=== PATIENT | female | born 1975 | race Caucasian/White ===

== ENCOUNTER → 2019-11-23 17:58 | Outpatient (CLI) | payer MEDICAID, SELFPAY ==
[2019-11-23 19:30] LABS: Basophils # 0.1 K/mm3 (0-0.2); Basophils % 0.5 % (0.1-2.0); Eosinophils # 0.1 K/mm3 (0.0-0.4); Eosinophils % 1.2 % (0.1-12.0); Hematocrit 38.8 % (37.0-47.0); Hemoglobin 13.1 g/dL (12.2-16.2); Lymphocytes # 4.1 K/mm3 (0.7-4.5); Lymphocytes % 40.9 % (10-50); Mean Corpuscular HGB Conc 33.8 g/dL (31.8-35.4); Mean Corpuscular Volume 85.8 fl (81-99); Mean Platelet Volume 8.7 fl (7.4-10.4); Monocytes # 0.6 K/mm3 (0.1-1.0); Monocytes % 5.6 % (1.7-9.3); Neutrophils # 5.2 K/mm3 (1.8-7.8); Neutrophils % 51.7 % (37.0-80.0); Platelet Count 283 K/mm3 (142-424); Red Blood Count 4.52 M/mm3 (4.20-5.40); Red Cell Distribution Width 14.2 % (11.5-17.5)
[2019-11-23 20:20] LABS: Chloride 104 mmol/L (98-107); Sodium 140 mmol/L (136-145)
[2019-11-23 20:21] LABS: Potassium 4.1 mmoL/L (3.5-5.1)
[2019-11-23 20:23] LABS: Alanine Aminotransferase 16 U/L (12-78); Albumin Level 4.5 g/dl (3.5-5.0); Albumin/Globulin Ratio 1.7 (1.1-1.8); Alkaline Phosphatase 62 U/L (38-126); Anion Gap 13.1 mEq/L (5-15); Aspartate Amino Transferase 34 U/L (14-36); Bilirubin,Total 0.3 mg/dl (0.2-1.3); Blood Urea Nitrogen 8 mg/dl (7-17); Carbon Dioxide 27 mmol/L (22.0-30.0); Cholesterol 207 mg/dl (140-200); Estimated Glomerular Filt Rate 135 ml/min (>60); GFR (African American) 164 ML/MIN (>60); Globulin 2.7 g/dL (1.3-3.2); Total Protein,Serum 7.2 g/dl (6.3-8.2); Triglycerides 128 mg/dl (30-150); VLDL Cholesterol 26 mg/dL (0-40)
[2019-11-23 20:24] LABS: Calcium 11.1 mg/dl (8.4-10.2); Chol/HDL Ratio 4.2 (1-3.5); Glucose 99 mg/dl (74-100); HDL Cholesterol 49 mg/dl (40-60)
[2019-11-23 20:35] LABS: Direct LDL Cholesterol 133.06 mg/dL (100-129)
[2019-11-23 20:41] LABS: T4 (Thyroxine) 10.4 ug/dl (5.53-11.0)
[2019-11-23 20:44] LABS: 25-OH Vitamin D, Total 29.8 ng/mL (30-100)
[2019-11-23 20:54] LABS: Thyroid Stimulating Hormone 0.82 uIU/mL (0.465-4.68)
[2019-11-25 10:12] LABS: Hep A Ab, IgM Negative (Negative); Hepatitis B Core Antibody IgM Negative (Negative); Hepatitis B Surface Antigen Negative (Negative)
[2019-11-25 19:43] LABS: Hepatitis C Antibody <0.1 s/co ratio (0.0-0.9)
== END ==
PROVIDERS: Visit Provider Emergency Medicine
DX: F41.9 Anxiety disorder, unspecified (principal); R53.83 Other fatigue; G56.01 Carpal tunnel syndrome, right upper limb; M79.2 Neuralgia and neuritis, unspecified; E55.9 Vitamin D deficiency, unspecified; Z72.0 Tobacco use
CPT/HCPCS: 80053; 80061; 80074; 82306; 84436; 84443; 85025

== ENCOUNTER → 2020-02-17 08:55 | Outpatient (CLI) | payer MEDICAID, SELFPAY ==
--- NOTE | 2020-02-17 08:56 | MM_ITS ---
PROCEDURE: MM DIG SCREENING MAMM BI W/CAD Digital Breast Tomosynthesis Included CLINICAL INDICATION: screening xmg There is no personal or family history of breast cancer. COMPARISON: MG Screening-Bilateral Mammography from 03/25/2019 TECHNIQUE: Standard CC and MLO images and 3D Tomosynthesis was obtained. R2 CAD reviewed. FINDINGS: There is a markedly and diffusely dense heterogenic parenchymal pattern and the findings are bilateral and symmetrical. Tomograms are most helpful in this type of dense breast parenchyma. There are scattered benign-appearing microcalcifications in each breast. There is a mole marker left breast. There are no CAD markers. There is no suspicious lesion in either breast and no suspicious microcalcifications. IMPRESSION: Markedly dense parenchymal pattern with no suspicious lesions seen BI-RAD Category: 2 Benign Finding(s) FOLLOW-UP: 1YR 1 Year Follow-up (A letter has been sent to the patient regarding results of the study.) Dictated by: Dr. Duran Mendieta MD 03/30/2020 10:50 Dr. Duran Mendieta MD in [place] 03/30/2020 10:50
== END ==
PROVIDERS: PCP Emergency Medicine; Visit Provider Nurse Practitioner Obstetrics & Gynecology
DX: Z12.31 Encounter for screening mammogram for malignant neoplasm of breast (principal)
CPT/HCPCS: 77063; 77067

== ENCOUNTER → 2020-05-24 10:59 | Outpatient (CLI) | payer MEDICAID, SELFPAY | PROVIDERS: PCP Emergency Medicine; Visit Provider Emergency Medicine | DX: Z20.822 Contact with and (suspected) exposure to COVID-19 (principal) | CPT/HCPCS: U0003 ==

== ENCOUNTER → 2021-01-04 17:30 | Outpatient (CLI) | payer MEDICAID, SELFPAY | PROVIDERS: Visit Provider Nurse Practitioner Family | DX: N39.0 Urinary tract infection, site not specified (principal) | CPT/HCPCS: 87086; 87088; 87186 ==

== ENCOUNTER → 2021-03-17 11:21 | Outpatient (CLI) | payer MEDICAID, SELFPAY ==
[2021-03-17 11:40] LABS: Basophils # 0.1 K/mm3 (0-0.2); Basophils % 0.4 % (0.1-2.0); Hematocrit 40.6 % (37.0-47.0); Hemoglobin 13.5 g/dL (12.2-16.2); Lymphocytes # 1.6 K/mm3 (0.7-4.5); Lymphocytes % 12.2 % (10-50); Mean Corpuscular HGB Conc 33.3 g/dL (31.8-35.4); Mean Corpuscular Hemoglobin 30.6 pg (27.0-31.2); Mean Corpuscular Volume 91.8 fl (81-99); Mean Platelet Volume 8.9 fl (7.4-10.4); Monocytes # 0.6 K/mm3 (0.1-1.0); Monocytes % 4.3 % (1.7-9.3); Neutrophils # 10.8 K/mm3 (1.8-7.8); Neutrophils % 83.1 % (37.0-80.0); Platelet Count 407 K/mm3 (142-424); Red Blood Count 4.42 M/mm3 (4.20-5.40); Red Cell Distribution Width 14.4 % (11.5-17.5); White Blood Count 12.9 K/mm3 (4.8-10.8)
[2021-03-17 12:19] LABS: Erythrocyte Sedimentation Rate 24 mm/hr (0-20)
[2021-03-17 12:25] LABS: Chloride 103 mmol/L (98-107); Sodium 139 mmol/L (136-145)
[2021-03-17 12:26] LABS: Potassium 3.9 mmoL/L (3.5-5.1)
[2021-03-17 12:28] LABS: Alanine Aminotransferase 11 U/L (12-78); Alkaline Phosphatase 81 U/L (38-126); Anion Gap 13.9 mEq/L (5-15); Aspartate Amino Transferase 22 U/L (14-36); Blood Urea Nitrogen 10 mg/dl (7-17); Carbon Dioxide 26 mmol/L (22.0-30.0); Estimated Glomerular Filt Rate 109 ml/min (>60); GFR (African American) 132 ML/MIN (>60)
[2021-03-17 12:29] LABS: Albumin Level 4.6 g/dl (3.5-5.0); Albumin/Globulin Ratio 1.8 (1.1-1.8); Calcium 10.4 mg/dl (8.4-10.2); Globulin 2.5 g/dL (1.3-3.2); Glucose 139 mg/dl (74-100); Total Protein,Serum 7.1 g/dl (6.3-8.2)
[2021-03-17 13:09] LABS: Bilirubin,Total < 0.1 mg/dl (0.2-1.3)
[2021-03-18 09:12] LABS: RA Latex Turbid. <10.0 IU/mL (<14.0)
[2021-03-19 15:31] LABS: Anti-Centromere B Antibodies <0.2 AI (0.0-0.9); Anti-DNA (DS) Ab Qn 1 IU/mL (0-9); Anti-Jo-1 <0.2 AI (0.0-0.9); Anti-Smith Antibody <0.2 AI (0.0-0.9); Antichromatin Antibodies <0.2 AI (0.0-0.9); Antiscleroderma-70 Antibodies <0.2 AI (0.0-0.9); RNP Antibodies <0.2 AI (0.0-0.9); Sjogren's Anti-SS-A <0.2 AI (0.0-0.9); Sjogren's Anti-SS-B <0.2 AI (0.0-0.9)
[2021-03-19 19:08] LABS: Lupus Reflex Interpretation Comment: (.); PTT-LA 34.3 sec (0.0-51.9); dRVVT 43.3 sec (0.0-47.0)
[2021-03-20 23:10] LABS: Anti-Cyclic Citrullinated Pept 6 units (0-19)
== END ==
PROVIDERS: Visit Provider Emergency Medicine
DX: M79.2 Neuralgia and neuritis, unspecified (principal); R53.83 Other fatigue
CPT/HCPCS: 36415; 80053; 85025; 85613; 85651; 86003; 86140; 86200; 86225; 86235; 86431

== ENCOUNTER 2021-05-29 11:13 | Emergency (ER) | payer MEDICAID, SELFPAY ==
[2021-05-29 12:10] VITALS: BP 113/67; PULSE 74; RESP 21; TEMP 37.1; O2SAT 98; BMI 21.9
--- NOTE | 2021-05-29 12:46 | HMH.EDUTC ---
[facility] [place] Disposition Clinical Impression: UTI (urinary tract infection) Qualifiers: Urinary tract infection type: site unspecified Hematuria presence: with hematuria Qualified Code(s): N39.0 - Urinary tract infection, site not specified Disposition: Home, Self-Care Condition on Discharge: Good Instructions: Trimethoprim/Sulfamethoxazole (Alternative Therapy), Urinary Tract Infection, DI for Urinary Tract Infection (UTI) Additional Instructions: *Increase fluids. Water not Soda or Tea *Start antibiotic immediately and be sure to take as ordered for the FULL length of time although you should start to see improvement over the next 48 hours *Pyridium as needed Remember this medication will turn your urine [place]. This is normal but it will stain what ever it gets on *You should not use Pyridium for more than 48 hours. If so , follow up with your primary physician to review urine culture and ensure that antibiotic is adequate for infection *Be SURE to follow up anytime for new or worsening symptoms with your family doctor. AND in 48 hours for urine culture results with your family doctor, if you do not have a doctor then you may call back to the [facility] for urine culture results and further treatment. We do recommend that you choose and establish care with a Primary Care Physician. AND follow up with them in 10-14 days to repeat UA to ensure infection is resolved and blood no longer present *Be sure to let your PCP know that we sent urine cultures from the [facility] so they can follow up to ensure that you area the on the correct antibiotic Call your doctor office and make appointment for 48 hours (2 days from today) to follow up and get the results of your urine culture and further treatment Prescriptions: Sulfamethoxazole/Trimethoprim [Bactrim DS tablet] 1 each PO BID 7 Days #14 tab Transmission Status: Received by [facility] Phenazopyridine HCl [Pyridium 200mg Tablet] 200 pow PO TID #6 tab Transmission Status: Received by [facility] Referrals: Yogesh Wylie MD [Primary Care Provider] - As needed Time of Disposition: 12:56 Medical Decision Making - Gaetano Inquiry Pt receiving controlled substance: No Gaetano was queried for this patient: No Vital Signs: 05/29/21 12:10 05/29/21 13:06 Temperature 98.8 F 98.8 F Temperature Source Oral Pulse Rate 74 Pulse Rate [Right Brachial] 74 Respiratory Rate 21 21 Blood Pressure 113/67 Blood Pressure [Right Arm] 113/67 Blood Pressure Mean [Right Arm] 82 Blood Pressure Source [Right Arm] Automatic Cuff Blood Pressure Position [Right Arm] Sitting 02 Sat by Pulse Oximetry 98 Oxygen Delivery Method Room Air - Lab Data Lab results reviewed: Yes: I reviewed the patient's lab results. Lab Results 05/29/21 12:16: Urine Color Dark yellow, Urine Appearance Clear, Urine pH 6.0, Ur Specific [place] 1.020, Urine Protein Trace, Urine Glucose (UA) Negative, Urine Ketones Negative, Urine Blood Negative, Urine Nitrate Positive A, Urine Bilirubin Negative, Urine Urobilinogen 0.2, Ur Leukocyte Esterase Negative Orders (Tests/Meds): ED MEDICATIONS Discontinued Medications Generic Name Dose Route Start Last Admin Trade Name Freq PRN Reason Stop Dose Admin Ceftriaxone Sodium 1 gm 05/29/21 12:47 05/29/21 13:05 Ceftriaxone 1gm Vial IM 05/29/21 12:48 1 gm ONCE ONE Administration Lidocaine HCl 0 ml 05/29/21 12:47 05/29/21 13:05 Lidocaine 1% 5ml Pf Vial IM 05/29/21 12:48 2 ml ONCE ONE Administration ORDERS Category Date Time Status Urine Culture Stat Micro 05/29/21 12:16 Received Medical Decision Narrative: medication discussed with pharmacy [facility] [place] HPI - General Stated complaint: possible uti Time Seen by Provider: 05/29/21 12:46 Mode of Arrival: Ambulatory Source of Information: Patient Limitations: No Limitations Description of Symptoms (Recalled from Triage Doc. by RN): PATIENT C/O LOWER BACK PAIN, BURNING/PAIN WITH U
[2021-05-29 12:51] LABS: Apearance,Urine Clear (Clear); Bilirubin,Urine Negative (Negative); Blood, Urine Negative (Negative); Color,Urine Dark Yellow (Yellow); Glucose,Urine (UA) Negative (Negative); Ketones,Urine Negative (Negative); Protein,Urine Trace (Negative); UTC Leukocyte Esterase,Urine Negative (Negative); UTC Nitrate,Urine Positive (Negative); Urobilinogen,Urine 0.2 EU/dl (0.2)
[2021-05-29 13:06] VITALS: BP 113/67; PULSE 74; RESP 21; TEMP 37.1; O2SAT 98
== END 2021-05-29 13:17 | disposition home or self-care (01) ==
PROVIDERS: Emergency Provider Nurse Practitioner; PCP Emergency Medicine
DX: N30.00 Acute cystitis without hematuria (principal); F41.9 Anxiety disorder, unspecified; F17.210 Nicotine dependence, cigarettes, uncomplicated
CPT/HCPCS: 81003; 87086; 87088; 87186; 96372; 99202; G0463; J0696

== ENCOUNTER → 2021-06-06 10:00 | Outpatient (CLI) | payer MEDICAID, SELFPAY ==
--- NOTE | 2021-06-06 10:06 | XR_ITS ---
FINAL REPORT CLINICAL HISTORY: CTS FINDINGS: LEFT WRIST Three views demonstrate no acute fracture or dislocation. The joint spaces appear normal. The visualized bony structures are well aligned. No soft tissue abnormality is seen. IMPRESSION: No acute process. Reviewed, Interpreted and Dictated by Dayron Apodaca MD Transcribed by Mary Garcia Authenticated by Dayron Apodaca MD on 06/06/2021 11:16:00 AM [facility]
--- NOTE | 2021-06-06 10:11 | XR_ITS ---
FINAL REPORT CLINICAL HISTORY: carpal tunnel FINDINGS: RIGHT WRIST Three views demonstrate no acute fracture or dislocation. The joint spaces appear normal. The visualized bony structures are well aligned. No soft tissue abnormality is seen. IMPRESSION: No acute process. Reviewed, Interpreted and Dictated by Dayron Apodaca MD Transcribed by Mary Garcia Authenticated by Dayron Apodaca MD on 06/06/2021 11:15:59 AM [facility]
== END ==
PROVIDERS: PCP Emergency Medicine; Visit Provider Orthopaedic Surgery
DX: G56.03 Carpal tunnel syndrome, bilateral upper limbs (principal)
CPT/HCPCS: 73110

== ENCOUNTER → 2022-03-28 11:45 | Outpatient (CLI) | payer MEDICAID, SELFPAY ==
[2022-03-28 15:10] LABS: Amphetamine/Metha Screen,Urine Positive ng/ml (<1000)
[2022-03-28 15:11] LABS: Barbiturates Screen,Urine Negative ng/ml (<200); Benzodiazepines Screen,Urine Negative ng/ml (<200)
[2022-03-28 15:12] LABS: Cannabinoid Screen,Urine Negative ng/ml (<50)
[2022-03-28 15:13] LABS: Cocaine Screen,Urine Negative ng/ml (<300); Methadone Screen,Urine Negative ng/ml (<300)
[2022-03-28 15:14] LABS: Opiate Screen,Urine Negative ng/ml (<300); Phencyclidine Screen,Urine Negative ng/ml (<25)
== END ==
PROVIDERS: PCP Emergency Medicine; Visit Provider Emergency Medicine
DX: Z79.899 Other long term (current) drug therapy (principal)
CPT/HCPCS: 80305

== ENCOUNTER → 2022-07-16 10:33 | Outpatient (CLI) | payer MEDICAID, SELFPAY ==
[2022-07-16 15:02] LABS: Basophils # 0.1 K/mm3 (0-0.2); Basophils % 1.3 % (0.1-2.0); Eosinophils # 0.4 K/mm3 (0.0-0.4); Eosinophils % 5.8 % (0.1-12.0); Hematocrit 43.4 % (37.0-47.0); Hemoglobin 13.3 g/dL (12.2-16.2); Lymphocytes # 3.1 K/mm3 (0.7-4.5); Lymphocytes % 41.3 % (10-50); Mean Corpuscular HGB Conc 30.5 g/dL (31.8-35.4); Mean Corpuscular Hemoglobin 28.9 pg (27.0-31.2); Mean Corpuscular Volume 94.5 fl (81-99); Mean Platelet Volume 7.8 fl (7.4-10.4); Monocytes # 0.6 K/mm3 (0.1-1.0); Monocytes % 7.2 % (1.7-9.3); Neutrophils # 3.4 K/mm3 (1.8-7.8); Neutrophils % 44.4 % (37.0-80.0); Platelet Count 344 K/mm3 (142-424); Red Cell Distribution Width 14.4 % (11.5-17.5); White Blood Count 7.6 K/mm3 (4.8-10.8)
[2022-07-16 15:09] LABS: Alanine Aminotransferase 20 U/L (12-78); Albumin Level 3.9 g/dl (3.5-5.0); Albumin/Globulin Ratio 1.6 (1.1-1.8); Alkaline Phosphatase 72 U/L (38-126); Aspartate Amino Transferase 29 U/L (14-36); Bilirubin,Total 0.2 mg/dl (0.2-1.3); Blood Urea Nitrogen 12 mg/dl (7-17); Calcium 8.9 mg/dl (8.4-10.2); Carbon Dioxide 29 mmol/L (22.0-30.0); Chloride 103 mmol/L (98-107); Chol/HDL Ratio 3.1 (1-3.5); Cholesterol 186 mg/dl (140-200); Estimated Glomerular Filt Rate 109 ml/min (>60); GFR (African American) 131 ML/MIN (>60); Globulin 2.4 g/dL (1.3-3.2); Glucose 78 mg/dl (74-100); HDL Cholesterol 60 mg/dl (40-60); Sodium 137 mmol/L (136-145); Total Protein,Serum 6.3 g/dl (6.3-8.2); Triglycerides 56 mg/dl (30-150); VLDL Cholesterol 11 mg/dL (0-40)
[2022-07-16 15:20] LABS: Direct LDL Cholesterol 104.64 mg/dL (100-129)
[2022-07-16 15:22] LABS: Barbiturates Screen,Urine Negative ng/ml (<200)
[2022-07-16 15:25] LABS: T4 (Thyroxine) 6.9 ug/dl (5.53-11.0)
[2022-07-16 15:25] LABS: Benzodiazepines Screen,Urine Negative ng/ml (<200)
[2022-07-16 15:26] LABS: 25-OH Vitamin D, Total 19.9 ng/mL (30-100)
[2022-07-16 15:26] LABS: Cannabinoid Screen,Urine Negative ng/ml (<50); Cocaine Screen,Urine Negative ng/ml (<300)
[2022-07-16 15:27] LABS: Methadone Screen,Urine Negative ng/ml (<300)
[2022-07-16 15:28] LABS: Opiate Screen,Urine Negative ng/ml (<300); Phencyclidine Screen,Urine Negative ng/ml (<25)
[2022-07-16 15:39] LABS: Thyroid Stimulating Hormone 0.44 uIU/mL (0.465-4.68)
[2022-07-30 13:13] LABS: Amphetamine Positive (.); Amphetamine (GC/MS) 32450 ng/mL (Cutoff=500); Amphetamines Positive (.); Methamphetamine Positive (.)
== END ==
PROVIDERS: PCP Emergency Medicine; Visit Provider Emergency Medicine
DX: F90.9 Attention-deficit hyperactivity disorder, unspecified type (principal); E78.5 Hyperlipidemia, unspecified; E55.9 Vitamin D deficiency, unspecified; Z79.899 Other long term (current) drug therapy
CPT/HCPCS: 80053; 80061; 80305; 80324; 82306; 84436; 84443; 85025

== ENCOUNTER → 2022-10-09 15:55 | Outpatient (CLI) | payer MEDICAID, SELFPAY ==
--- NOTE | 2022-10-09 16:05 | MM_ITS ---
PROCEDURE INFORMATION: Exam: MG Bilateral Screening 3D Mammography Exam date and time: 10/09/2022 3:57 PM Age: 47 years old Clinical indication: Screening. No family history of breast cancer. TECHNIQUE: Imaging protocol: Bilateral Screening tomosynthesis and 2D mammography including computer-aided detection (CAD) when performed. COMPARISON: 1. MG MM DIG SCREENING MAMM BI W/CAD 02/17/2020 9:04 AM 2. MG Screening-Bilateral Mammography 03/25/2019 4:34 PM FINDINGS: MAMMOGRAPHY: Breast composition: The breasts are extremely dense, which lowers the sensitivity of mammography. Mass: None. Architectural distortion: None. Calcifications: No suspicious calcifications. Asymmetric density: None. Skin thickening: None. Axillary adenopathy: None. IMPRESSION: No mammographic evidence of malignancy. Annual screening is recommended unless otherwise clinically indicated. ASSESSMENT: BI-RADS Category 1: Negative
== END ==
LOC: RAD 15:55
PROVIDERS: PCP Emergency Medicine; Visit Provider Nurse Practitioner Obstetrics & Gynecology
DX: Z12.31 Encounter for screening mammogram for malignant neoplasm of breast (principal)
CPT/HCPCS: 77063; 77067

== ENCOUNTER 2023-04-25 11:31 | Outpatient (CLI) | payer MEDICAID, SELFPAY ==
[2023-04-25 12:51] LABS: Amphetamine/Metha Screen,Urine Negative ng/ml (<1000); Barbiturates Screen,Urine Negative ng/ml (<200); Benzodiazepines Screen,Urine Negative ng/ml (<200); Cannabinoid Screen,Urine Negative ng/ml (<50); Cocaine Screen,Urine Negative ng/ml (<300); Opiate Screen,Urine Negative ng/ml (<300); Phencyclidine Screen,Urine Negative ng/ml (<25)
[2023-04-25 12:54] LABS: Methadone Screen,Urine Negative ng/ml (<300)
[2023-05-01 10:34] LABS: Gabapentin,Urine >800.0 ug/mL (.)
== END 2023-04-25 23:59 ==
LOC: LAB.DROPOF 11:31
PROVIDERS: Visit Provider Family Medicine
DX: Z79.899 Other long term (current) drug therapy (principal)
CPT/HCPCS: 80307

== ENCOUNTER 2023-05-22 12:15 | Outpatient (CLI) | payer MEDICAID, SELFPAY ==
--- NOTE | 2023-05-22 12:22 | XR_ITS ---
FINAL REPORT CLINICAL HISTORY: right wrist pain FINDINGS: Right wrist Three views were obtained. There is no acute fracture or dislocation. There are mild degenerative changes at the radial aspect of the wrist. No soft tissue abnormality is identified. IMPRESSION: Mild degenerative changes. Reviewed, Interpreted and Dictated by Valente Alex III, MD Transcribed by Mary Garcia Authenticated and [facility]
--- NOTE | 2023-05-22 12:22 | XR_ITS ---
FINAL REPORT CLINICAL HISTORY: left wrist pain FINDINGS: Left wrist Three views were obtained. There is no acute fracture or dislocation. There are mild degenerative changes at the radial aspect of the wrist. No soft tissue abnormality is identified. IMPRESSION: Mild degenerative changes. Reviewed, Interpreted and Dictated by Valente Alex III, MD Transcribed by Mary Garcia Authenticated and [facility]
== END 2023-05-22 23:59 ==
LOC: RAD 12:17
PROVIDERS: PCP Family Medicine; Visit Provider Orthopaedic Surgery
DX: G56.03 Carpal tunnel syndrome, bilateral upper limbs (principal)
CPT/HCPCS: 73110

== ENCOUNTER 2023-05-22 13:38 | Outpatient (RCR) | payer MEDICAID, SELFPAY | END 2023-05-22 14:30 | disposition home or self-care (01) | LOC: OT 13:38 | PROVIDERS: Visit Provider Orthopaedic Surgery | DX: M25.532 Pain in left wrist (principal); M65.4 Radial styloid tenosynovitis [de Quervain]; G56.02 Carpal tunnel syndrome, left upper limb | CPT/HCPCS: 97763 ==